=== PATIENT | female | born 1965 | race Caucasian/White ===

== ENCOUNTER → 2016-08-14 | Outpatient (CLI) | payer MEDICAID ==
[~2016-08-14] MED LIST: ALBU1.25 NEB; HYDR-3138 PO; MELO-184 PO
== END | disposition home or self-care (01) ==
LOC: CARD 08:17
PROVIDERS: ATTEND Genetic Counselor, MS
DX: R07.9 Chest pain, unspecified (principal); E66.9 Obesity, unspecified; Z72.0 Tobacco use
CPT/HCPCS: 93017

== ENCOUNTER → 2016-09-20 | Outpatient (CLI) | payer MEDICAID | END | disposition home or self-care (01) | LOC: CFH 14:58 | PROVIDERS: ATTEND Genetic Counselor, MS | DX: Z12.31 Encounter for screening mammogram for malignant neoplasm of breast (principal) | CPT/HCPCS: G0202 ==

== ENCOUNTER → 2017-03-02 | Outpatient (CLI) | payer MEDICAID ==
[~2017-03-02] MED LIST changes: -HYDR-3138 PO; +HYDR-3237 PO; -MELO-184 PO; +MELO15TA24 PO
== END | disposition home or self-care (01) ==
LOC: RAD 12:31
PROVIDERS: ATTEND Genetic Counselor, MS
DX: R60.0 Localized edema (principal)

== ENCOUNTER → 2018-05-14 | Outpatient (CLI) | payer MEDICARE, MEDICAID | END | disposition home or self-care (01) | LOC: CFH 09:58 | PROVIDERS: ATTEND Nurse Practitioner Family | DX: Z12.31 Encounter for screening mammogram for malignant neoplasm of breast (principal) | CPT/HCPCS: 77067 ==

== ENCOUNTER → 2020-01-07 | Outpatient (CLI) | payer MEDICARE, MEDICAID | END | disposition home or self-care (01) | LOC: CFH 09:57 | PROVIDERS: ATTEND Nurse Practitioner Family | DX: Z12.31 Encounter for screening mammogram for malignant neoplasm of breast (principal); Z12.2 Encounter for screening for malignant neoplasm of respiratory organs; F17.210 Nicotine dependence, cigarettes, uncomplicated; R91.1 Solitary pulmonary nodule; J84.10 Pulmonary fibrosis, unspecified | CPT/HCPCS: 77067; G0297 ==